=== PATIENT | female | born 1990 | race Two or more races ===

== ENCOUNTER 2021-05-26 11:35 | Day surgery (SDC) | payer OTHER ==
[~2021-05-26 11:35] MED LIST: MENEST0.625 MG PO; PROGESTERONE
== END 2021-05-26 19:00 | disposition home or self-care (01) ==
LOC: CIR.AMB 11:35
PROVIDERS: ATTEND Obstetrics & Gynecology Maternal & Fetal Medicine
DX: O02.1 Missed abortion (principal); Z20.822 Contact with and (suspected) exposure to COVID-19